=== PATIENT | male | born 1995 | race Caucasian/White ===

== ENCOUNTER 2022-04-10 10:14 | Emergency (ER) | payer BC ==
[~2022-04-10] VITALS: Ht 167.6 cm; Wt 91.2 kg
[2022-04-10 10:14] VITALS: BP 138/87
--- NOTE | 2022-04-10 10:14 | NUR ---
BIBA to bed 06. Seizure precautions in place.
[2022-04-10] MEDS ORDERED: LORazepam 1 MG TAB PO ONE (10:20)
[2022-04-10] MEDS ORDERED: NACL 0.9% 1,000 ML IV ONE (10:20)
--- NOTE | 2022-04-10 10:28 | NUR ---
PT SWABBED FOR COVID(LALY). WALKED TO LAB
--- NOTE | 2022-04-10 10:30 | NUR ---
TAKEN TO CT VIA MELINA
[2022-04-10 10:53] LABS: BASOPHILS # (AUTO) 0.1 K/uL (0.00-0.22); BASOPHILS % (AUTO) 1.4 % (0.0-2.0); EOSINOPHILS # (AUTO) 0.8 K/uL (0-0.4); EOSINOPHILS % (AUTO) 12.1 % (0.0-4.0); HEMATOCRIT 49.4 % (36-52); HEMOGLOBIN 16.9 g/dL (12.0-18.0); LYMPHOCYTES # (AUTO) 2.6 K/uL (2.0-11.5); LYMPHOCYTES % (AUTO) 40.1 % (20.5-51.1); MEAN CORPUSCULAR HEMOGLOBIN 30 pg (27-31); MEAN CORPUSCULAR HGB CONC 34 g/dL (33-37); MEAN CORPUSCULAR VOLUME 86.8 fL (80-94); MONOCYTES # (AUTO) 0.4 K/uL (0.8-1.0); MONOCYTES % (AUTO) 6.7 % (1.7-9.3); NEUTROPHILS # (AUTO) 2.6 K/uL (1.8-7.7); NEUTROPHILS % (AUTO) 39.7 % (42.2-75.2); PLATELET COUNT (AUTO) 266 K/uL (140-450); RED BLOOD CELL COUNT(AUTO) 5.69 MIL/uL (4.20-6.10); RED CELL DISTRIBUTION WIDTH 13.3 % (11.6-13.7); WHITE BLOOD COUNT (AUTO) 6.6 K/uL (4.8-10.8)
--- NOTE | 2022-04-10 11:00 | NUR ---
26YO MALE PT BIBA FROM HOME DUE TO SEIZURE. PER [facility], PT HAD WITNESSED CLONIC TONIC SEIZURE AND FELL FROM BED. [facility] STATES PT WAS AOX0 AT FIRST CONTACT. UPON ARRIVAL, PT WAS AAOX3 TO NAME , PLACE AND PRESIDENT BUT WAS REASKED NAME DUE TO ANSWERING "SUPERMAN" THE FIRST TIME. PT UNAWARE OF SITUATION AND CANT RECALL LAST ACTIVITY PRIOR TO ARRIVAL. PT DENIES HEAD INJURY , N/V/D OR CHEST PAIN. DENIES DIZZYNESS. NO VISIBLE INJURY TO MOUTH OR HEAD. RESPIRATIONS EVEN AND UNLABORED. PT SPEAKING CLEAR WITH SLIGHT DELAY AND IN FULL SENTENCES. PT ON MONITOR W/ SEZIURE PADS IN PLACE. HX: DENIES NKA
[2022-04-10 11:04] LABS: ALBUMIN 4.5 g/dL (3.4-5.0); ANION GAP 16.6 (8-16); CARBON DIOXIDE 24.5 mmol/L (21-32); CREATININE 0.9 mg/dL (0.6-1.3); POTASSIUM 4.1 mmol/L (3.5-5.1); TOTAL BILIRUBIN 0.7 mg/dL (0.0-1.0)
--- NOTE | 2022-04-10 11:06 | NUR ---
FATHER AMIRA DEL RIO [phone]
[2022-04-10 11:31] LABS: APPEARANCE,URINE CLEAR (CLEAR); BILIRUBIN,URINE NEGATIVE (NEGATIVE); BLOOD, URINE TRACE-I (NEGATIVE); COLOR,URINE YELLOW (YELLOW); LEUKOCYTE ESTERASE ,URINE NEGATIVE (NEGATIVE); NITRITE, URINE NEGATIVE (NEGATIVE); UGLUCOSE NEGATIVE (NEGATIVE)
[2022-04-10 11:53] LABS: OTHER CASTS, URINE None Seen /LPF (None Seen); RBC,URINE 0-5 /HPF (0-5); WBC,URINE 0-5 /HPF (0-5)
[2022-04-10 11:54] LABS: BARBITURATE, URINE NEGATIVE ng/ml (NEG <=200); BENZODIAZEPINE, URINE NEGATIVE ng/mL (NEG <=200); CANNABINOID, URINE POSITIVE ng/mL (NEG <=50); COCAINE, URINE NEGATIVE ng/mL (NEG <=300); OPIATE, URINE NEGATIVE ng/mL (NEG <=2000); PHENCYCLIDINE SCREEN,URINE NEGATIVE ng/mL (NEG <=25)
[2022-04-10 13:06] VITALS: BP 115/67
--- NOTE | 2022-04-10 13:06 | NUR ---
Patient discharged with v/s stable. Written and verbal after care instructions given and explained. Patient verbalized understanding. Ambulatory with steady gait. All questions addressed prior to discharge. Advised to follow up with PMD.
--- NOTE | 2022-04-10 13:07 | NUR ---
Chart checked and completed.Chart checked and completed. The patient's care was reviewed and supervised by Asha Ortega RN.
== END 2022-04-10 13:06 | disposition home or self-care (01) ==
LOC: MED 10:14
DX: R56.9 Unspecified convulsions (principal); Z20.822 Contact with and (suspected) exposure to COVID-19; R41.82 Altered mental status, unspecified
CPT/HCPCS: 36415; 70450; 80053; 80305; 81001; 85025; 87426; 96360; 99284; J7030